=== PATIENT | female | born 2000 | race Two or more races ===

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

== ENCOUNTER → 2019-01-16 13:02 | Outpatient (CLI) | payer OTHER, SELFPAY ==
--- NOTE | 2019-01-16 13:07 | US_ITS ---
US OB /maternal detail: INDICATION: ITS.REASON: US OB Complete ORDERING PHYSICIAN: Delon Wolfe MD PATIENT AGE: 18 years TECHNIQUE: ultrasound transabdominal scanning. COMPARISON: No previous relevant studies. FINDINGS: Single viable intrauterine gestation. Breech position. Placenta: Posterior placenta grade 1. There is average amount fluid. The cervix appears satisfactory. Closed and measuring 3 cm in length. Complete survey performed and was unremarkable on the submitted images as in PACS. No discrete anomalies identified on survey imaging by technologist. Active fetus. Three-vessel cord with satisfactory umbilical cord insertion. 4- chamber heart noted. Survey of brain & ventricles unremarkable. Face and neck survey unremarkable. Diaphragm and chest views unremarkable. Abdomen: Both kidneys noted and unremarkable. Stomach noted and satisfactory. Spine: Survey of the spine satisfactory with no anomalies identified nor imaged. Both arms and legs noted. Amniotic Fluid: Adequate. Maternal adnexa: No significant findings. Measurements: Average ultrasound age 22w5d. Gestational Age 22w0d. Estimated due date by ultrasound age 1005/17/2019. Estimated weight 520 grams. BPD = 22w5d OFD = 23w0d HC = 22w2d AC = 23w0d FL = 22w3d Growth Percentile= 76 Heart Rate = 150 Cerebellum = 23w5d Humerus = 22w3d HC/AC is 1.11 (1.06-1.25). CI is 76% (70-86%). FL/BPD is 70%. FL/AC is 21% (20-24%). IMPRESSION: There is a single live fetus which is in breech presentation with an average ultrasound age of 22 weeks and 5 days. All parameters correlate. No obvious anomalies. heart and body motion noted. Please see above for detailed.
== END ==
PROVIDERS: PCP Nurse Practitioner; Visit Provider Nurse Practitioner Obstetrics & Gynecology
DX: Z36.0 Encounter for antenatal screening for chromosomal anomalies (principal)
CPT/HCPCS: 76811